=== PATIENT | female | born 1990 | race Caucasian/White ===

== ENCOUNTER 2019-08-25 17:39 | Emergency (ER) | payer SELFPAY ==
[2019-08-25] MEDS ORDERED: FAMOTIDINE 20 MG/2 ML VIAL IV ONE (20:02)
[2019-08-25] MEDS ORDERED: ONDANSETRON 4 MG/2 ML VIAL ONE (20:02)
[2019-08-25] MEDS ORDERED: NA CHLORIDE 0.9% 1,000 ML ONE (20:02)
[2019-08-25 20:20] LABS: Absolute Lymphocytes (CBC) 3.1 K/uL (0.7-4.9); Basophils % 0.3 % (0-1.3); Hematocrit 40.9 % (36.0-45.0); Lymphocytes % 30.7 % (15.3-44.8); MPV 8.9 fL (7.6-11.3); RBC Red Blood Cell Count 4.57 M/uL (3.86-4.86)
[2019-08-25 20:23] LABS: Albumin 4.2 g/dL (3.4-5.0); Bilirubin Direct 0.1 mg/dL (0-0.2); Bilirubin Total 0.4 mg/dL (0.2-1.0); Protein, Total 7.9 g/dL (6.4-8.2)
[2019-08-25 21:04] LABS: Urine Blood NEGATIVE (NEG); Urine Glucose NEGATIVE (NEG); Urine Protein TRACE (NEG); Urine Specific Gravity >1.030 (1.005-1.030); Urine pH 6.5 (5.0-7.0)
[2019-08-25] MEDS ORDERED: CEFTRIAXONE/SWI 1gm 1 GM/10 ML SYR ONE (22:02)
--- NOTE | 2019-08-25 22:23 | EDPHYS ---
Physician Documentation [facility] Name: Piper Amaya Age: 29 yrs Sex: Female : 1990 Arrival Date: 08/25/2019 Time: 17:41 Bed 13 Private MD: ED Physician Jarek Fenton HPI: 08/24 19:40 This 29 yrs old Female presents to ER via Ambulatory with complaints of cp Vomiting. 19:40 The patient presents to the emergency department with nausea, that is moderate, cp vomiting, that is intermittent, abdominal pain. Onset: The symptoms/episode began/occurred today. Possible causes: unknown. Associated signs and symptoms: Pertinent negatives: constipation, diarrhea, dysuria, fever, GI bleeding. Severity of symptoms: in the emergency department the symptoms are unchanged despite home interventions. 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 - Social history:: Smoking status: Patient reports the use of cigarette tobacco products, smokes one-half pack cigarettes per day. ROS: 19:45 Constitutional: Negative for body aches, chills, fever. cp 19:45 Eyes: Negative for injury, pain, redness, and discharge. cp 19:45 ENT: Negative for ear pain, sore throat, difficulty swallowing, difficulty handling secretions. 19:45 Cardiovascular: Negative for chest pain, palpitations. 19:45 Respiratory: Negative for cough, shortness of breath, wheezing. 19:45 Abdomen/GI: Positive for abdominal pain, nausea and vomiting, Negative for diarrhea, constipation, black/tarry stool, rectal bleeding. 19:45 Back: Positive for radiated pain. 19:45 : Negative for urinary symptoms. 19:45 All other systems are negative. Exam: 19:50 Constitutional: The patient appears in no acute distress, alert, awake, non-toxic, well cp developed, well nourished. 19:50 Head/Face: Normocephalic, atraumatic. cp 19:50 Eyes: Periorbital structures: appear normal, Conjunctiva: normal, no exudate, no injection, Sclera: no appreciated abnormality, Lids and lashes: appear normal, bilaterally. 19:50 ENT: External ear(s): are unremarkable, Nose: is normal, Mouth: is normal, Posterior pharynx: Airway: no evidence of obstruction, patent. 19:50 Chest/axilla: Inspection: normal, Palpation: is normal, no crepitus, no tenderness. 19:50 Cardiovascular: Rate: normal, Rhythm: regular. 19:50 Respiratory: the patient does not display signs of respiratory distress, Respirations: normal, no use of accessory muscles, no retractions, labored breathing, is not present, Breath sounds: are clear throughout, no decreased breath sounds. 19:50 Abdomen/GI: Inspection: abdomen appears normal, Bowel sounds: active, all quadrants, Palpation: soft, in all quadrants, mild abdominal tenderness, left mid abdomen, rebound tenderness, is not appreciated, voluntary guarding, is not appreciated, involuntary guarding, is not appreciated. Vital Signs: 18:06 BP 107 / 80; Pulse 72; Resp 18 S; Temp 98.3(TE); Pulse Ox 99% on R/A; Weight 77.11 kg aa5 (R); Height 5 ft. 7 in. (170.18 cm) (R); Pain 6/10; 20:16 BP 95 / 59; Pulse 48; Resp 18; Pulse Ox 99% on R/A; dh4 20:49 BP 118 / 73; Pulse 65; Resp 18; Pulse Ox 99% on R/A; Pain 3/10; ls4 21:41 BP 114 / 79; Pulse 66; Resp 18; Temp 98.1(O); Pulse Ox 99% on R/A; Pain 3/10; ls4 18:06 Body Mass Index 26.63 (77.11 kg, 170.18 cm) aa5 MDM: 19:29 Patient medically screened. cp 22:20 Data reviewed: vital signs, nurses notes, lab test result(s), radiologic studies, CT cp scan, and as a result, I will discharge patient. 22:20 Counseling: I had a detailed discussion with the patient and/or guardian regarding: the cp historical points, exam findings, and any diagnostic results supporting the discharge/admit diagnosis, lab results, radiology results, to return to the emergency department if symptoms worsen or persist or if there are any questions or concerns that arise at home. Response to treatment: the patient's symptoms have markedly improved after treatment, VSS. Pain and nausea improved and vomiting resolved, and as a result, I will discharge patient. 08/24 19:32 Order name: Basic Metabolic Panel; Complete Time: 20:56 cp 08/24 19:32 Order name: CBC with Diff; Complete Time: 21:48 cp 08/24 19:32 Order name: Hepatic Function; Complete Time: 20:56 cp 08/24 19:32 Order name: Lipase; Complete Time: 20:56 cp 08/24 20:25 Order name: Urine Dipstick--Ancillary (enter results); Complete Time: 21:48 ar5 08/24 20:25 Order name: Urine --Ancillary (enter results); Complete Time: 21:48 ar 08/24 19:32 Order name: IV Saline Lock; Complete Time: 19:57 cp 08/24 20:08 Order name: CT Abd/Pelvis - IV Contrast Only cp 08/24 21:49 Order name: Urine Microscopic Only 08/24 21:49 Order name: Urine Culture 08/24 19:32 Order name: Labs collected and sent; Complete Time: 19:57 cp 08/24 19:32 Order name: Urine Dipstick-Ancillary (obtain specimen); Complete Time: 20:02 cp 08/24 19:32 Order name: Urine Test (obtain specimen); Complete Time: 20:02 cp 08/24 21:48 Order name: PO challenge; Complete Time: 21:48 cp 08/24 21:50 Order name: PO challenge; Complete Time: 21:53 cp Administered Medications: 20:02 Drug: Pepcid 20 mg Route: IVP; Site: left antecubital; mg2 20:30 Follow up: Response: No adverse reaction; Marked relief of symptoms ls4 20:02 Drug: Zofran (Ondansetron) 4 mg Route: IVP; Site: left antecubital; mg2 20:30 Follow up: Response: No adverse reaction; Marked relief of symptoms ls4 20:02 Drug: NS 0.9% 1000 ml Route: IV; Rate: 1 bolus; Site: left antecubital; mg2 21:02 Follow up: IV Status: Completed infusion; IV Intake: 1000ml ls4 21:57 Drug: Rocephin 1 grams Route: IV; Rate: calculated rate; Site: left antecubital; ls4 22:07 Follow up: Response: No adverse reaction; Marked relief of symptoms; IV Status: ls4 Completed infusion; IV Intake: 10ml Disposition: 08/25 16:58 Co-signature as Attending Physician, Jarek Fenton MD I agree with the assessment and angelica plan of care. Disposition: 08/25/19 22:22 Discharged to Home. Impression: Urinary tract infection, site not specified, Nausea and vomiting, Unspecified abdominal pain. - Condition is Stable. - Discharge Instructions: Abdominal Pain, Adult, Nausea and Vomiting, Adult, Urinary Tract Infection, Adult. - Prescriptions for Zofran 4 mg Oral Tablet - take 1 tablet by ORAL route every 12 hours As needed; 20 tablet. Bactrim DS 800- 160 mg Oral Tablet - take 1 tablet by ORAL route every 12 hours for 7 days; 14 tablet. - Medication Reconciliation Form, Thank You Letter, Antibiotic Education, Prescription Opioid Use form. - Follow up: Private Physician; When: 2 - 3 days; Reason: Recheck today's complaints. - Problem is new. - Symptoms have improved. Signatures: Dispatcher [employer] EDJarek Mello MD MD cha Calderon, Audri RN RN aa5 Jaci Londono RN RN lp1 Jarek Sr PA PA cp Devin Kirk, RN RN mg2 Isabel Freeman RN RN ls4 Corrections: (The following items were deleted from the chart) 08/24 22:43 22:22 08/25/2019 22:22 Discharged to Home. Impression: Urinary tract infection, site lp1 not specified; Nausea and vomiting; Unspecified abdominal pain. Condition is Stable. Forms are Medication Reconciliation Form, Thank You Letter, Antibiotic Education, Prescription Opioid Use. Follow up: Private Physician; When: 2 - 3 days; Reason: Recheck today's complaints. Problem is new. Symptoms have improved. cp
--- NOTE | 2019-08-25 22:23 | ER ---
Nurse's Notes [facility] Name: Piper Amaya Age: 29 yrs Sex: Female : 1990 Arrival Date: 08/25/2019 Time: 17:41 Bed 13 Private MD: Diagnosis: Urinary tract infection, site not specified;Nausea and vomiting;Unspecified abdominal pain Presentation: 08/24 18:04 Chief complaint: Patient states: vomiting since noon today. Pt c/o mild abd pain and aa5 mild back pain. Pt denies burning with urination, denies diarrhea. Coronavirus screen: Proceed with normal triage. Patient denies a cough. Patient denies shortness of breath or difficulty breathing. Patient denies measured and/or subjective temperature greater than 100.4F prior to today's visit. Patient denies travel on a cruise ship or to a country the [facility] currently lists as an affected area. Patient denies contact with known and/or suspected case of COVID-19. Ebola Screen: Patient negative for fever greater than or equal to 101.5 degrees Fahrenheit, and additional compatible Ebola Virus Disease symptoms. Initial Sepsis Screen: Does the patient meet any 2 criteria? No. Patient's initial sepsis screen is negative. Does the patient have a suspected source of infection? No. Patient's initial sepsis screen is negative. Risk Assessment: Do you want to hurt yourself or someone else? Patient reports no desire to harm self or others. Onset of symptoms was August 25, 2019. 18:04 Method Of Arrival: Ambulatory aa5 18:04 Acuity: OMER 3 aa5 18:16 Note [facility] about pt aa5 sneaking drugs into their facility which may contribute to pt vomiting. Triage Assessment: 20:40 General: Appears uncomfortable, Behavior is calm, cooperative. GI: Abdomen is ls4 non-distended, Bowel sounds present X 4 quads. Abd is soft and non tender X 4 quads. Reports nausea, vomiting, since today. 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 - Social history:: Smoking status: Patient reports the use of cigarette tobacco products, smokes one-half pack cigarettes per day. Screenin:39 Abuse screen: Denies threats or abuse. Denies injuries from another. Nutritional ls4 screening: No deficits noted. Tuberculosis screening: No symptoms or risk factors identified. Fall Risk None identified. Assessment: 19:23 Pain: Complains of pain in right lower quadrant and left lower quadrant Pain currently ls4 is 3 out of 10 on a pain scale. Quality of pain is described as aching. 19:23 General: Appears in no apparent distress. uncomfortable, Behavior is calm, cooperative. ls4 Neuro: No deficits noted. Cardiovascular: No deficits noted. Respiratory: Airway is patent Respiratory effort is even, unlabored, Respiratory pattern is regular, Breath sounds are clear bilaterally. GI: Abdomen is non-distended, Bowel sounds present X 4 quads. : Urine is cloudy. Derm: Skin is pink, warm \T\ dry. Musculoskeletal: No deficits noted. No signs and/or symptoms reported regarding the musculoskeletal system. 20:30 Reassessment: Patient appears in no apparent distress at this time. Patient is alert, ls4 oriented x 3, equal unlabored respirations, skin warm/dry/pink. 21:45 Reassessment: Patient appears in no apparent distress at this time. Patient and/or ls4 family updated on plan of care and expected duration. Pain level reassessed. Patient is alert, oriented x 3, equal unlabored respirations, skin warm/dry/pink. 22:22 Reassessment: Patient appears in no apparent distress at this time. Patient and/or ls4 family updated on plan of care and expected duration. Pain level reassessed. Patient is alert, oriented x 3, equal unlabored respirations, skin warm/dry/pink. Patient states feeling better. Patient states symptoms have improved. 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 Vital Signs: 18:06 BP 107 / 80; Pulse 72; Resp 18 S; Temp 98.3(TE); Pulse Ox 99% on R/A; Weight 77.11 kg aa5 (R); Height 5 ft. 7 in. (170.18 cm) (R); Pain 6/10; 20:16 BP 95 / 59; Pulse 48; Resp 18; Pulse Ox 99% on R/A; dh4 20:49 BP 118 / 73; Pulse 65; Resp 18; Pulse Ox 99% on R/A; Pain 3/10; ls4 21:41 BP 114 / 79; Pulse 66; Resp 18; Temp 98.1(O); Pulse Ox 99% on R/A; Pain 3/10; ls4 18:06 Body Mass Index 26.63 (77.11 kg, 170.18 cm) aa5 ED Course: 17:41 Patient arrived in ED. as 18:05 Triage completed. aa5 18:06 Arm band placed on. aa5 19:25 Jarek Sr PA is PHCP. cp 19:25 Jarek Fenton MD is Attending Physician. cp 19:25 Isabel Freeman, JUN is Primary Nurse. ls4 20:00 Inserted saline lock: 22 gauge in left antecubital area, using aseptic technique. Blood mg2 collected. by BILLY Sanders Tech. 20:02 No provider procedures requiring assistance completed. mg2 20:39 Patient has correct armband on for positive identification. Bed in low position. Call ls4 light in reach. Side rails up X 1. Pulse ox on. NIBP on. Verbal reassurance given. Diet: Patient is NPO. 21:01 CT Abd/Pelvis - IV Contrast Only In Process Unspecified. EDMS 21:45 No apparent distress. Resting quietly. Awaiting disposition. ls4 22:06 No apparent distress. ls4 22:06 Diet: Patient given water. Tolerated well. ls4 22:15 IV discontinued, intact, bleeding controlled, No redness/swelling at site. Pressure ls4 dressing applied. Administered Medications: 20:02 Drug: Pepcid 20 mg Route: IVP; Site: left antecubital; mg2 20:30 Follow up: Response: No adverse reaction; Marked relief of symptoms ls4 20:02 Drug: Zofran (Ondansetron) 4 mg Route: IVP; Site: left antecubital; mg2 20:30 Follow up: Response: No adverse reaction; Marked relief of symptoms ls4 20:02 Drug: NS 0.9% 1000 ml Route: IV; Rate: 1 bolus; Site: left antecubital; mg2 21:02 Follow up: IV Status: Completed infusion; IV Intake: 1000ml ls4 21:57 Drug: Rocephin 1 grams Route: IV; Rate: calculated rate; Site: left antecubital; ls4 22:07 Follow up: Response: No adverse reaction; Marked relief of symptoms; IV Status: ls4 Completed infusion; IV Intake: 10ml Intake: 21:02 IV: 1000ml; Total: 1000ml. ls4 22:07 IV: 10ml; Total: 1010ml. ls4 Outcome: 22:22 Discharge ordered by MD. cp 22:26 Discharged to home ambulatory. ls4 22:26 Condition: stable 22:26 Discharge instructions given to family, Instructed on discharge instructions, follow up and referral plans. medication usage. 22:43 Patient left the ED. lp1 Addendum: 08/30/2019 11:50 Addendum: Culture Results: Positive urine culture. Bacteria is resistant to, has s s intermediate sensitivity, or is not tested against prescribed antibiotics. Report given to TAB for further evaluation and then to yellow pages space salesperson for follow up with patient. Phone call Attempt #1 Called and spoke with [facility] faculty (Basilia) who reports that she spoke with patient who stated that she never had any s/s of UTI and feels well. Recommended by SEBASTIEN Oreilly that if patient were having symptoms to change prescription from Bactrim to Cipro 500 mg 1 tab PO BID x 10 days. Signatures: Dispatcher [employer] EDMS Rylie Ponce Audri, RN RN aa5 Anna Morales RN RN ss Pena, Laura, RN RN lp1 Jarek Sr PA PA cp Gardose, Michele, RN RN mg2 Isabel Freeman RN RN 4 Tommy Klein formerly [facility] Corrections: (The following items were deleted from the chart) 08/24 21:45 20:30 Reassessment: Patient appears in no apparent distress at this time. Patient is ls4 alert, oriented x 3, equal unlabored respirations, skin warm/dry/pink. Patient is alert/active/playful, equal unlabored respirations, skin warm/dry/pink. ls4 21:57 21:57 Rocephin 1 grams IV at calculated rate in right antecubital ls4 ls4 22:31 22:15 Condition: stable ls4 ls4 22:31 22:15 Discharged to home ambulatory, ls4 ls4 22:31 22:15 Discharge instructions given to family, Instructed on discharge instructions, ls4 follow up and referral plans. medication usage, ls4
[2019-08-25 22:29] LABS: Urine Bacteria LOADED /HPF (<20); Urine RBC <5 /HPF (NONE SEEN)
[2019-08-25 22:30] LABS: Urine Culture Reflex Order REFLEXED
[2019-08-25 22:51] VITALS: O2SAT 99
[2019-08-25 22:55] VITALS: BP 114/79; TEMP 98.1
--- NOTE | 2019-08-27 09:57 | RAD REPORT ---
EXAM DESCRIPTION: CT - Abdomen Pelvis W Contrast - 08/26/2019 5:43 am CLINICAL HISTORY: 1 years Female, vomiting;Abd pain COMPARISON: None TECHNIQUE: Contiguous axial CT images of the abdomen and pelvis were obtained. Sagittal and coronal reformats were reviewed. This exam was performed according to our departmental dose-optimization pr ogram, which includes automated exposure control, adjustment of the mA and/or kV according to patient size and/or use of iterative reconstruction technique. FINDINGS: Lung bases: The lung bases are clear. Liver: Unremarkable. No focal liver lesion. Gallbladder: Unremarkable. No gallstones. No gallbladder wall thickening or pericholecystic fluid. Spleen: Unremarkable Pancreas: Pancreas is unremarkable. Adrenal glands: Within normal limits. Kidneys/ureters: 2 mm nonobstructive calculus inferior left renal pole. No hydronephrosis or nephroli thiasis on the right. Stomach/small bowel/colon: Stomach is unremarkable. Small bowel is unremarkable. Colon is unremar kable. Appendix: No evidence of appendicitis. Peritoneum: No free fluid. Vascular structures: within normal limits Lymph nodes: No abnormal lymph nodes. Bladder: Unremarkable. Pelvic organs: Small cystic changes in both ovaries Bones: No acute osseous abnormality. Soft tissues: Unremarkable.. IMPRESSION: No acute intra-abdominal abnormality. Electronically signed by: Willard Bond DO 08/25/2019 9:25 PM CDT Due to temporary technical issues with the PACS/Fluency reporting system, reports are being signed by the in house radiologist without review as a courtesy to ensure prompt reporting. The interpreting r adiologist is fully responsible for the content of the report.
== END 2019-08-25 22:43 | disposition home or self-care (01) ==
LOC: ER 17:39
DX: N39.0 Urinary tract infection, site not specified (principal); R10.9 Unspecified abdominal pain; F17.210 Nicotine dependence, cigarettes, uncomplicated
CPT/HCPCS: 36415; 74177; 80048; 80076; 81003; 81015; 81025; 83690; 85025; 87077; 87086; 87088; 87186; 96361; 96374; 96375; 99284; J0696; J2405; J7030; Q9967